=== PATIENT | male | born 1960 | race Caucasian/White ===

== ENCOUNTER 2020-03-07 15:43 | Emergency (ER) | payer OTHER, SELFPAY ==
[2020-03-07 15:44] VITALS: BP 102/61; PULSE 71; RESP 16; TEMP 36.6; O2SAT 99; BMI 22.8
--- NOTE | 2020-03-07 16:11 | ED.VIS.GEN ---
History of Present Illness Chief Complaint: Upper Extremity Injury Informant: Patient Onset: Today Narrative: [id number] male presents with left wrist injury 1 hour prior to arrival. Reports walking down carpeted steps due to 10 pound charmaine litter containers when he bumped the chairlift causing him to fall down. He braced his arm. He did not hit his head. He does not take anticoagulation medicines. He states he had 2 alcoholic drinks today. Denies paresthesias, states had a nonsurgical similar fracture was in the seventh grade in the same wrist. He does not follow an orthopedist. He denies any allergies. Prior similar symptoms: Yes Past Medical History - Allergies and Home Meds Allergies/Adverse Reactions: Allergies No Known Allergies Allergy (Verified 03/07/20 15:47) Primary Care Physician: Daniel Cui DO [Primary Care Provider] - Past Medical History: None Smoking Status: Current every day smoker Review of Systems General: Denies: Chills, Fever, Sweats Eyes: Denies: Visual changes - bilaterally, Diplopia ENT: Denies: Rhinorrhea, Sore throat Cardiovascular: Denies: Chest pain, Palpitations Respiratory: Denies: Dyspnea, Cough, Dyspnea on exertion Gastrointestinal: Denies: Abdominal pain, Nausea, Vomiting, Diarrhea, Melena, Hematochezia Genitourinary: Denies: Dysuria, Hematuria, Frequency Musculoskeletal: Reports: Arthralgias. Denies: Back pain, Extremity Pain Skin: Denies: Rash, Wounds Neurological: Denies: Headache, Weakness, Numbness Physical Exam Vital Signs/Narrative: Vital Signs Temp Pulse Resp BP Pulse Ox 03/07/20 15:44 98 F 71 16 102/61 99 Inital Vital Signs reviewed: Yes General: Well nourished, Well developed, No Acute Distress, - - GCS 15. Clinically sober. Head: Normocephalic, Atraumatic Eyes: Perrl, EOMI ENT: Moist mucous membranes, No rhinorrhea Neck: Supple, Nontender Cardiovascular: Regular rate, Regular rhythm, No murmurs Respiratory: No distress, CTA bilaterally, Chest nontender Abdomen: Soft, Nontender, Nondistended, Normal bowel sounds Back: Nontender, Normal Inspection Extremities: - - Left upper extremity no shoulder or elbow pain. There is a dinner fork deformity distal forearm, skin intact. No paresthesias of the fingers. Skin: Normal color, No rash, - - Super Clive abrasion along the dorsal aspect of left forearm with no active bleeding. Neurological: Alert, Oriented x3, Cranial nerves II-XII grossly intact, Normal Strength, Normal Sensation Psychological: Normal affect, Normal Mood Diagnostic/Tx/Re-eval Clinical Impression(s) from Imaging Studies Wrist X-Ray 03/07/20 16:20 IMPRESSION: Acute Colles'' fracture. Electronically Signed: Derrick Judge MD at 16:58 EST Tel , Service support , 3 view left wrist: Reviewed by myself concerns for distal radius fracture with dorsal tilt displaced, no ulnar fracture noted. 2 view post reduction: Reviewed by myself, significant improvement of alignment of the fracture. - Medical Decision Making Patient reports only 2 alcoholic drink he is clinically sober. Denies headache neck pain chest pains. Treated [place] and ice. Clinically fracture per my exam. X-ray 3 views confirms this with distal radius with dorsal tilt. Hematoma block performed with fracture reduction in the ED with significant improvement. Short prescription for [place] and stool softeners and follow-up with orthopedics. Discussed continuing elevation. Sling provided. Procedure note: Verbal consent. Hematoma block performed bedside with total of 10 cc of 0.5% bupivacaine with good analgesia. Performed preprocedure, patient placed in a fingertrap traction, reevaluation there was improved alignment with gravity alone. Nylon sleeve was placed, Kerlix dressing, additional reduction performed, 4 inch plaster splint placed AP coapt in a flexed position. Chalino wrap dressing placed. Patient tolerated procedure well. Neurovascular intact post splinting. Post reduction x-rays performed and reviewed by myself. ED Disposition - Plan for ED Patient: Disposition: Home or Assisted Living Diagnosis: Closed fracture of left wrist Instructions: ED Forearm Fracture with Reduction Prescriptions: Docusate Sodium [Colace] 100 mg PO DAILY #20 capsule Hydrocodone Bitart/Apap 5-325 [[place] 5MG-325MG] 1 tablet PO Q6H PRN PRN 3 Days #12 tablet PRN Reason: Pain Referrals: Daniel Cui DO [Primary Care Provider] - Chicorelli,Eve, DO [STAFF PHYSICIAN] - 3-5 Days Additional Instructions: Distal radius fracture status post reduction. Maintain splint. Use sling as needed. Follow-up with orthopedics.
--- NOTE | 2020-03-07 16:20 | RAD_ITS ---
STUDY: X-RAY - LEFT WRIST REASON FOR EXAM: Male, 59 years old. fall, left wrist deformity, ETOH+ TECHNIQUE: 3 view(s) of the wrist were obtained. COMPARISON: None. FINDINGS: Acute dorsally angulated oblique fracture of the distal metaphysis radius consistent with a Colles'' fracture. Normal radiocarpal articulation. Normal distal radioulnar articulation. Normal carpal bones. Normal carpal articulations. Normal carpometacarpal articulation of the thumb. Normal second through fifth carpometacarpal articulations. Normal visualized metacarpal bones. The soft tissue structures are unremarkable. RAD/Wrist min 3 Views IMPRESSION: Acute Colles'' fracture. Electronically Signed: Derrick Judge MD at 16:58 EST Tel , Service support ,
[2020-03-07] MEDS: HYDROcodone Bitartrate/Apap 5/325 Tablet PO (16:30)
[2020-03-07] MEDS: Bupivacaine 0.5% PF 10 ML VIAL INFILT (16:31)
--- NOTE | 2020-03-07 17:47 | RAD_ITS ---
STUDY: X-RAY - LEFT WRIST REASON FOR EXAM: Male, 59 years old. post reduction left wrist TECHNIQUE: 2 view(s) of the wrist were obtained. COMPARISON: 4:17 PM FINDINGS: New plaster splint obscures detail. Impacted comminuted fracture distal radius appears unchanged. Normal radiocarpal articulation. Normal distal radioulnar articulation. Normal carpal bones. Normal carpal articulations. Normal carpometacarpal articulation of the thumb. Normal second through fifth carpometacarpal articulations. Normal visualized metacarpal bones. The soft tissue structures are unremarkable. RAD/Wrist 2 Views IMPRESSION: Distal radial fracture unchanged status post casting Electronically Signed: Ivan Albrecht MD at 18:14 EST , Service support ,
[2020-03-07 18:21] VITALS: BP 116/72; PULSE 85; RESP 16; O2SAT 97
== END 2020-03-07 18:22 | disposition home or self-care (01) ==
PROVIDERS: Emergency Provider Emergency Medicine; PCP Preventive Medicine Occupational Medicine
DX: S52.502A Unspecified fracture of the lower end of left radius, initial encounter for closed fracture (principal); W10.9XXA Fall (on) (from) unspecified stairs and steps, initial encounter; Y93.01 Activity, walking, marching and hiking; Y92.9 Unspecified place or not applicable; Y99.9 Unspecified external cause status; F17.200 Nicotine dependence, unspecified, uncomplicated
CPT/HCPCS: 25605; 73100; 73110; 99283

== ENCOUNTER → 2020-03-18 12:44 | Outpatient (CLI) | payer OTHER, SELFPAY ==
[2020-03-08 08:35] VITALS: BMI 22.8
--- NOTE | 2020-03-18 12:48 | CT_ITS ---
STUDY: CT SCAN OF THE WRIST LEFT REASON FOR EXAM: Male, 59 years old. LEFT WRIST FX- FELL 1.5 WKS AGO DOWN STEPS RADIATION DOSAGE (If Supplied By Facility): CTDIvol = ( 24.58 ) mGy, DLP = ( 425.39 ) mGycm. Individualized dose optimization techniques were used for this CT.? TECHNIQUE: Multiple axial tomographic images are obtained without intravenous contrast administration. Coronal and sagittal reconstruction was obtained. COMPARISON: Comparison is made with prior radiograph of the wrist dated 03/07/2020. FINDINGS: There is evidence of a condylar fracture of the distal radial metaphysis with extension to the articular surface. There is minimal dorsal facing at the radiocarpal joint. Soft tissue swelling. CT/Extremity Upper without Contra IMPRESSION: Comment fracture of the distal radial metaphysis with extension to the articular surface with minimal residual dorsal facing at the distal radial carpal joint. Soft tissue swelling. Electronically Signed: Ghulam Calzada MD at 13:52 EST , Service support ,
== END ==
PROVIDERS: PCP Preventive Medicine Occupational Medicine; Referring Provider Physician Assistant; Visit Provider Physician Assistant
DX: S52.502D Unspecified fracture of the lower end of left radius, subsequent encounter for closed fracture with routine healing (principal); X58.XXXD Exposure to other specified factors, subsequent encounter
CPT/HCPCS: 73200

== ENCOUNTER → 2020-03-25 11:50 | Outpatient (CLI) | payer OTHER, SELFPAY ==
[2020-03-08 08:35] VITALS: BMI 22.8
--- NOTE | 2020-03-25 12:00 | RAD_ITS ---
STUDY: X-RAY - LEFT WRIST REASON FOR EXAM: Male, 59 years old. Fx f/u TECHNIQUE: 3 view(s) of the wrist were obtained. COMPARISON: Comparison is made with prior study dated 09/04/2020. FINDINGS: Healing comminuted fracture of the distal radial metaphysis. Mild dorsal facing. Normal radiocarpal articulation. Normal distal radioulnar articulation. Normal carpal bones. Normal carpal articulations. Normal carpometacarpal articulation of the thumb. Normal second through fifth carpometacarpal articulations. Normal visualized metacarpal bones. Soft tissue swelling. RAD/Wrist min 3 Views IMPRESSION: Healing comminuted fractured distal radial metaphysis with residual dorsal facing. Electronically Signed: Ghulam Calzada MD at 13:12 EST , Service support ,
== END ==
PROVIDERS: PCP Preventive Medicine Occupational Medicine; Referring Provider Physician Assistant; Visit Provider Physician Assistant
DX: S52.502A Unspecified fracture of the lower end of left radius, initial encounter for closed fracture (principal); X58.XXXA Exposure to other specified factors, initial encounter; Y93.9 Activity, unspecified; Y92.9 Unspecified place or not applicable; Y99.9 Unspecified external cause status
CPT/HCPCS: 73110

== ENCOUNTER 2020-05-30 07:30 | Outpatient (RCR) | payer OTHER, SELFPAY ==
[2020-03-08 08:35] VITALS: BMI 22.8
--- NOTE | 2020-04-30 10:58 | HP.OTEVAL ---
Patient's Visit Information ELLA JUARES is a 60 year old M, referred to Occupational Therapy by EILEEN Cummings, with a diagnosis of left distal radius fracture (communicated intra-articular fx). Date of Evaluation: 04/29/20 Occupational Therapist: Madalyn Sales, DANO/Irena, CHT - Subjective This 60 year old male was seen for OT eval with dx of left distal radius fracture ( communicated intra-articular ) pt imobilized for 6 weeks. Order for ROM/ strengthening as able. pt states on 2020 he had a fall down steps. pt went to ER. and was placed in clam shell- had cat scan and Hiram reduced fx and pt was placed in cast for 6 weeks. pt currently 7 weeks 4 day from injury. pt would like to gain ROM and strength to perform his ADLs and IADLs. 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 Pt will demo an increase in lateral and tripod pinch by 4# to increase pts independent with opening baggies, containers at PLOF by D/C. Goal:: Pt will demo an increase in wrist ROM 50% of unaffected wrist to return pt to PLOF with grooming, dressing and home mtg tasks by D/C. Pt will demo an increase in forearm supination by 60* or greater to increase pts ind. With ADls and IADLS by d/c Goal:: Pt will report pain no greater than 1/10 with use of affected hand with BADLs and IADLs by d/c. - Rehabilitation General Assessment: Pt currently 7 weeks 4 days from a left distal radius fx (communicated intra-artic fx) pt demo with limited left wrist ROM and strength increasing need of assist with ADls and IADL. Pt would benefit from skilled OT services 1-2x week for 6 weeks to gain ROM and strength to return pt to ANITRA level with ADLs and IADLs by d/c. Today therapist ed. pt on dx, AROM ex use of ice/heat PRN, and how OT will progress him to strengthening as abril. Pt demo understanding and agree to POC. Rehabilitation Potential: Good - Anticipated Interventions A/AAROM/PROM, Strengthening, Triggerpoint Release, Modalities, Orthoses, Ergonomic Education - Visit Plan Frequency: 1-2x /Week Duration: 6 Weeks General Plan: therapist will progress pt to strengthening as pt abril. TEXT: Thank you for the opportunity to evaluate your patient. For Medicare and Medicare HMO plans, please review the plan of care and approve it. It will need to be FAXED BACK to us at [phone] for Medicare purposes. Please let me know if there are questions or concerns regarding this plan of care. Physician Signature: Date:
--- NOTE | 2020-10-14 15:04 | HP.OTDCSUM_ITS ---
It has been my pleasure to treat ELLA JUARES under orders from EILEEN Cummings, for the diagnosis of left distal radius fracture (communicated intra- articular fx) for a total of 9 visit(s). Please see the following information for a summary of their discharge status. 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 left lateral pinch 12#. left tripod pinch 10#. supination 65. pronation 60. pt demo good gains in ROM and strength and has returned to his PLOF with ADls and IADls. 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 Pt will demo an increase in lateral and tripod pinch by 4# to increase pts independent with opening baggies, containers at PLOF by D/C. Goal:: Pt will demo an increase in wrist ROM 50% of unaffected wrist to return pt to PLOF with grooming, dressing and home mtg tasks by D/C. Pt will demo an increase in forearm supination by 60* or greater to increase pts ind. With ADls and IADLS by d/c Goal:: Pt will report pain no greater than 1/10 with use of affected hand with BADLs and IADLs by d/c. Plan: pt to cont with HEP until releases pt If there are questions or concerns regarding this patient's occupational therapy, please fell free to call me at [phone]. Thank you for the ref erral of this patient. Sincerely, Madalyn Sales, OTR/L, CHT
== END 2020-05-30 19:00 | disposition home or self-care (01) ==
LOC: OT 07:30
PROVIDERS: PCP Preventive Medicine Occupational Medicine; Referring Provider Physician Assistant; Visit Provider Physician Assistant
DX: S52.572D Other intraarticular fracture of lower end of left radius, subsequent encounter for closed fracture with routine healing (principal)
CPT/HCPCS: 97110; 97140; 97166; 97530